=== PATIENT | male | born 1975 | race Caucasian/White ===

== ENCOUNTER 2021-08-08 13:28 | Emergency (ER) | payer BC ==
[2021-08-08 14:07] LABS: Bilirubin Negative (Negative); Blood, Urine Small (Negative); Clarity Hazy (Clear); Glucose, Urine (Dipstick) >=1000 mg/dL (Negative); Ketone, Urine Trace mg/dL (Negative); Leukocyte Trace (Negative); Nitrite Negative (Negative); Protein, Urine (Dipstick) Negative (Neg-Trace); Specific Gravity, Urine 1.015 (1.005-1.030)
[2021-08-08 14:17] LABS: Bacteria/HPF Rare-Few HPF (None Seen); Sperm/HPF 1+ HPF (None Seen); Squamous Epithelial 0-3 HPF (0-3); WBC/HPF 21-50 HPF (0-3); Yeast-Budding Rare HPF (None Seen)
== END 2021-08-08 14:45 | disposition home or self-care (01) ==
LOC: MADERS 13:28
DX: N39.0 Urinary tract infection, site not specified (principal); B37.9 Candidiasis, unspecified; E11.9 Type 2 diabetes mellitus without complications; E66.9 Obesity, unspecified; Z79.899 Other long term (current) drug therapy; Z79.84 Long term (current) use of oral hypoglycemic drugs
CPT/HCPCS: 81003; 81015; 87077; 87086; 87186; 99284